=== PATIENT | female | born 1985 | race Caucasian/White ===

== ENCOUNTER 2017-12-02 16:50 | Emergency (ER) | payer OTHER ==
[2017-12-02 17:48] VITALS: BP 143/81
[2017-12-02] MEDS ORDERED: Tetan/Diph/Pertus SYR(Tdap)* 0.5 ML SYR(BOOSTRIX) use SYR IM ONE (17:54)
--- NOTE | 2017-12-02 19:16 | RAD ---
INDICATION: Right fifth finger injury. TECHNIQUE: 3 views of the right fifth finger were obtained. FINDINGS: The bones are normal alignment. No fracture is seen. Joint spaces appear maintained. IMPRESSION: NO EVIDENCE FOR FRACTURE.
--- NOTE | 2017-12-02 19:42 | UC ---
Hand/Wrist HPI - HPI Summary HPI Summary: 32 yo female was mucking out her fathers barn hit right hand on manure dramatic coach paddle superficial flap lac to right little finger - History Of Current Complaint Chief Complaint: UCLaceration Stated Complaint: RIGHT SMALL FINGER LACERATION Time Seen by Provider: 12/02/17 18:32 Hx Obtained From: Patient Hx Last Menstrual Period: has mirena Onset/Duration: Sudden Onset, Lasting Hours Severity Initially: Moderate Severity Currently: Moderate Pain Intensity: 7 Pain Scale Used: 0-10 Numeric Character Of Pain: Aching, Throbbing Aggravating Factor(s): Movement Alleviating Factor(s): Rest, Ice, Elevation, OTC Meds - Allergies/Home Medications Allergies/Adverse Reactions: Allergies Allergy/AdvReac Type Severity Reaction Status Date / Time No Known Allergies Allergy Verified 12/02/17 17:48 Home Medications: Home Medications Ibuprofen TAB* [Advil TAB*] 800 mg PO ONCE 12/02/17 [History Confirmed 12/02/17] Levonorgestrel (Iud) [Mirena IUD] 20 mcg IU DAILY 12/02/17 [History Confirmed ] PMH/Surg Hx/FS Hx/Imm Hx Previously Healthy: Yes - Surgical History Surgical History: Yes Surgery Procedure, Year, and Place: WISDOM TEETH. LEFT HAND 1 INCH PIECE OF WOOD REMOVED 2008 - Family History Known Family History: Positive: Hypertension - Social History Alcohol Use: Occasionally Substance Use Type: None Smoking Status (MU): Never Smoked Tobacco - Immunization History Most Recent Tetanus Shot: 04/2009 Review of Systems Constitutional: Negative Skin: Negative Eyes: Negative ENT: Negative Respiratory: Negative Cardiovascular: Negative Gastrointestinal: Negative Genitourinary: Negative Motor: Negative Neurovascular: Negative Musculoskeletal: Arthralgia Neurological: Negative Psychological: Negative Is Patient Immunocompromised?: No All Other Systems Reviewed And Are Negative: Yes Physical Exam Triage Information Reviewed: Yes Appearance: Well-Appearing, No Pain Distress, Well-Nourished Vital Signs: Initial Vital Signs Temp 98.2 F 12/02/17 17:42 Pulse 88 12/02/17 17:42 Resp 17 12/02/17 17:42 BP 143/81 12/02/17 17:42 Pulse Ox 98 12/02/17 17:42 Vital Signs Reviewed: Yes Eyes: Positive: Conjunctiva Clear ENT: Positive: Hearing grossly normal. Negative: Nasal congestion, Nasal drainage, Trismus, Muffled voice, Hoarse voice Neck: Positive: Supple Respiratory: Positive: Lungs clear, Normal breath sounds, No respiratory distress Cardiovascular: Positive: RRR, No Murmur Musculoskeletal: Positive: ROM Intact, No Edema Neurological: Positive: Alert Psychological Exam: Normal Skin Exam: Other - see image Diagnostics - Radiology No standard instances Xray Interpretation: No Acute Changes Radiology Interpretation Completed By: Radiologist Hand/Wrist Course/Dx - Course Course Of Treatment: advised of need to f/u here or with her PCP for any concerns of infection. Td was updated - Differential Dx/Diagnosis Provider Diagnoses: right little finger contusion/sprain. superficial flap laceration not sutured Discharge - Sign-Out/Discharge Documenting (check all that apply): Discharge - Discharge Plan Condition: Stable Disposition: HOME Prescriptions: Amoxicillin/Clavulanate TAB* [Augmentin TAB 875*] 875 mg PO BID #6 tab Patient Education Materials: Contusion in Adults (ED), Laceration Without Closure (ED) Referrals: Anirudh SILVA,Nicci Cardenas [Primary Care Provider] - 3 Days (if not improved) Additional Instructions: splint for comfort ibruprofen warm soapy soaks twice daily gently dry apply thin film of antibiotic ointmen this injury is at risk for infection recheck for increased pain/redness/discharge - Billing Disposition and Condition Condition: STABLE Disposition: HOME Images Hands: 1 - 1 cm superficial flap lac
== END 2017-12-02 19:49 | disposition home or self-care (01) ==
LOC: UCCORT 16:50
DX: S60.051A Contusion of right little finger without damage to nail, initial encounter (principal); S61.216A Laceration without foreign body of right little finger without damage to nail, initial encounter; Z23 Encounter for immunization; W22.8XXA Striking against or struck by other objects, initial encounter; Y92.9 Unspecified place or not applicable
CPT/HCPCS: 73140; 90471; 90715

== ENCOUNTER 2017-12-16 06:14 | Day surgery (SDC) | payer OTHER ==
--- NOTE | 2017-12-08 09:27 | HP ---
PREOPERATIVE HISTORY AND PHYSICAL: DATE OF ADMISSION/SURGERY: 12/16/17 DATE OF OFFICE VISIT/ENCOUNTER: 11/26/17 ATTENDING SURGEON: Ashleigh Scruggs MD* (dictated by RIGO Glynn). PROCEDURE: Right wrist carpal tunnel release. CHIEF COMPLAINT: Numbness and tingling, bilateral hands, right worse than left. HISTORY OF PRESENT ILLNESS: This is a 32-year-old female that reports she has had numbness and tingling in both of her hands including the thumb, index, and middle fingers primarily for over 10 years. She denies any injury, but reports that with all activities the symptoms are made worse. She also gets symptoms in the middle of the night that awaken her. 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 She has not found anything as of yet that is very helpful to alleviate her symptoms. She has wrist braces at night, but feels that they cause her fingers to swell, so they are not very comfortable. She has also tried physical therapy, but this has not been helpful either. She had a nerve conduction/EMG study, which did show bilateral carpal tunnel syndrome, right worse than left. She is interested in pursuing surgical intervention for this problem at this time and has consented to proceed with a right wrist carpal tunnel release. PAST MEDICAL HISTORY: Unremarkable. PAST SURGICAL HISTORY: 1. Left hand foreign body removal in 2008. 2. [place] teeth extraction. CURRENT MEDICATIONS: None. ALLERGIES: No known drug allergies. FAMILY MEDICAL HISTORY: Diabetes, breast cancer, dementia, and heart disease. 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 She denies tobacco use and recreational drug use. She does drink alcohol on rare occasion. REVIEW OF SYSTEMS: General: Negative for fevers, chills, or night sweats. No known anesthesia problems. HEENT: Negative for headache, lightheadedness, or syncopal episodes. Integumentary: Negative for abrasions, lesions, or open wounds. Cardiothoracic: Negative for hypertension, chest pain, palpitations, or edema. Pulmonary: Negative for shortness of breath with exertion, chronic cough, or COPD. GI: Negative for nausea, vomiting, diarrhea, constipation, or GERD. : Negative for nocturia, urinary frequency, urgency, history of UTIs, and kidney problems. Musculoskeletal: Positive for current complaint. Negative for chronic or intermittent back pain or history of fractures. Neurological: Negative for paresthesias, numbness, history of seizure, stroke, or epilepsy. Endocrine: Negative for diabetes or thyroid issues. Hematologic: Negative for easy bruising, anemia, excessive bleeding, or history of DVT. Infectious Disease: Negative for history of MRSA, hepatitis C, or HIV. PHYSICAL EXAMINATION GENERAL: Well-developed, well-nourished, 32-year-old female in no acute distress. VITAL SIGNS: Height 5 feet 2.5 inches, weight 223 pounds, pulse rate 67, and blood pressure 126/82. HEENT: Normocephalic and atraumatic. Pupils are equal, round, and reactive to light and accommodation. Extraocular movements are intact. Throat is clear. NECK: Supple. No palpable lymph nodes. PULMONARY: Lungs are clear to auscultation bilaterally. No wheezes, rales, or rhonchi. CARDIOVASCULAR: Regular rate and rhythm, S1 and S2. No murmurs, rubs, or gallops. No edema. ABDOMEN: Positive bowel sounds, soft, and nontender. NEUROLOGIC: Alert and oriented x3. Cranial nerves II through XII are intact. Sensation is intact to light touch. MUSCULOSKELETAL: On exam of bilateral upper extremities, there is no visible muscle wasting at the thenar eminences or intrinsic muscles. She has good strength in bilateral thumbs and also good strength with finger abduction. There is mild tenderness to palpation at the left elbow, none at the right. She has a positive Tinel's at the wrist bilaterally over the median nerve. Positive median compression test and positive Phalen's test bilaterally. Negative Tinel's test bilaterally at the elbows. She has good range of motion of her elbows and her wrists. Sensation is intact to light touch throughout each hand. She has just mild increase in her symptoms as she laterally flexes her neck both to the left and to the right. No increase in symptoms with rotation, flexion, or extension of the cervical spine. She has a negative Spurling's test. DIAGNOSTIC STUDIES: EMG/nerve conduction studies showed bilateral carpal tunnel syndrome, right worse than left. PLAN: The patient is scheduled to undergo a right wrist carpal tunnel release with Dr. Scruggs on 12/16/17. She will return to the office 10 days postop for followup and suture removal. A prescription for Ultracet was e-scribed to the patient's pharmacy for postoperative pain management. RIGO GLYNN [id number]/[facility] #: [id number] MTDFred
[~2017-12-16 06:14] MED LIST: Buffered Lidocaine 0.9% SYRIN* 5 ML/SYR SYRINGE INTRADERM ONE
[2017-12-16] MEDS ORDERED: Lidocaine 1% INJ* 10 MG/ML 30 ML SDV ONE (07:15)
[2017-12-16] MEDS ORDERED: fentaNYL* 50 MCG/ML 2 ML VIAL (100 MCG VIAL) ONE (07:19)
[2017-12-16] MEDS ORDERED: Midazolam* 1 MG/ML 2 ML VIAL (2 MG) ONE (07:19)
[2017-12-16] MEDS ORDERED: Propofol* 10 MG/ML 20 ML BTL IV PUSH ONE (07:19)
[2017-12-16] MEDS ORDERED: Ondansetron INJ* 2 MG/ML VIAL ONE (07:21)
[2017-12-16 08:27] VITALS: BP 118/64
[2017-12-16] MEDS ORDERED: Naloxone* 0.4 MG/ML 1 ML VIAL IV PRN (08:59)
--- NOTE | 2017-12-16 16:39 | OP ---
DATE OF OPERATION: 12/16/17 [facility] DATE OF : 87 SURGEON: Ashleigh Scruggs MD MEDICATION COORDINATOR: RIGO Glynn ANESTHESIA: Local MAC. PRE-OP DIAGNOSIS: Right carpal tunnel syndrome. POST-OP DIAGNOSIS: Right carpal tunnel syndrome. OPERATIVE PROCEDURE: Right carpal tunnel release. INDICATIONS: Astrid is a 32-year-old female with numbness and tingling in the median nerve distribution of her right hand. She presents for a right carpal tunnel release. ESTIMATED BLOOD LOSS: Zero. TOURNIQUET TIME: 5 minutes. DESCRIPTION OF PROCEDURE: The patient was brought to the operating room, was given a sedation anesthetic and a local infiltration of 10 cc of 1% plain lidocaine in the palm of her right hand. The skin of her right hand and forearm was prepped and draped in the usual sterile fashion. The hand and forearm were exsanguinated and the tourniquet elevated to 250 mmHg. A longitudinal incision was made in the palm in line with the ring finger. We dissected through the subcutaneous tissue down to the transverse carpal ligament. The ligament was divided sharply with a knife and then more proximally with the scissors. The nerve was dissected free from the surrounding tissue and there was an area of moderate compression at the mid portion of the ligament. The wound was irrigated and the skin edges were reapproximated with 4-0 nylon suture. The wound was dressed with Xeroform, 4x4, Webril, and an Franco wrap. The patient tolerated the procedure well and was brought to the recovery room in good condition. [id number]/[facility] #: [id number] [facility]
== END 2017-12-16 08:24 | disposition home or self-care (01) ==
LOC: OREAST 06:14
PROVIDERS: ATTEND Orthopaedic Surgery
DX: G56.01 Carpal tunnel syndrome, right upper limb (principal); Z68.39 Body mass index [BMI] 39.0-39.9, adult
CPT/HCPCS: 81025; J2250; J2405; J2704; J3010

== ENCOUNTER 2019-10-05 07:33 | Day surgery (SDC) | payer BC ==
--- NOTE | 2019-09-28 20:48 | HP ---
PREOPERATIVE HISTORY AND PHYSICAL: DATE OF ADMISSION/SURGERY: 10/05/19 [facility] DATE OF OFFICE VISIT/ENCOUNTER: 09/16/19 ATTENDING SURGEON: Ashleigh Tsang MD.* (DICTATED BY RIGO OLIVO) PROCEDURE: Left wrist carpal tunnel release. HISTORY OF PRESENT ILLNESS: This is a 34-year-old female who complains of numbness and tingling in her left hand, ongoing for over 10 years. She denies any injury but reports that with all activities the symptoms are made worse. She also gets symptoms in the middle of the night that awaken her. She has not found anything that is very helpful to alleviate her symptoms. She has tried wrist braces but that has not worked. She has also tried physical therapy. She had an EMG nerve conduction study which showed carpal tunnel syndrome on the left. She a couple of years ago underwent a right wrist carpal tunnel release and did quite well with that. She has now consented to proceed with a left wrist carpal tunnel release. PAST MEDICAL HISTORY: Unremarkable. PAST SURGICAL HISTORY: 1. Right carpal tunnel release. 2. Left hand foreign body removal. 3. [place] teeth extraction. CURRENT MEDICATIONS: None. ALLERGIES: No known drug allergies. FAMILY MEDICAL HISTORY: Diabetes, breast cancer, dementia, heart disease. 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 She denies tobacco use or recreational drug use. She drinks alcohol on rare occasion. REVIEW OF SYSTEMS: Negative for general, cephalic, cardiovascular, respiratory , GI, , other musculoskeletal, integumentary, endocrine, neurologic, and hematologic symptoms. Infectious disease is negative for MRSA, hepatitis C, and HIV. PHYSICAL EXAMINATION GENERAL: Well-developed, well-nourished 34-year-old female, in no acute distress. VITAL SIGNS: Height 5 feet 2-1/2 inches, weight 220 pounds. Pulse rate 71, blood pressure 118/78. HEENT: Normocephalic, atraumatic. Pupils are equal, round, reactive to light and accommodation. Extraocular movements are intact. Throat is clear. NECK: Supple. No palpable lymph nodes. PULMONARY: Lungs are clear to auscultation bilaterally. No wheezes, rales, or rhonchi. CARDIOVASCULAR: Regular rate and rhythm. S1, S2. No murmurs, rubs, or gallops. No edema. ABDOMEN: Positive bowel sounds. Soft, nontender. NEUROLOGICAL: Alert and oriented x3. Cranial nerves II through XII are intact. MUSCULOSKELETAL: On exam of the left wrist and hand, there is no visible muscle wasting at the thenar eminence. She has good strength with some abduction. Positive Tinel sign at the wrist over the median nerve and positive median nerve compression test. She has good range of motion in her wrist and hand, and sensation is intact to light touch throughout the hand. DIAGNOSTIC STUDIES: EMG/nerve conduction study shows left carpal tunnel syndrome. PLAN: The patient is scheduled to undergo a left wrist carpal tunnel release with Dr. Tsang on 10/05/19. She will return to the office 10 days postop for followup and suture removal. A prescription for tramadol was e-scribed to the patient's pharmacy for postoperative pain management. RIGO OLIVO [id number]/[facility] #: [id number] NATHEN
[~2019-10-05 07:33] MED LIST changes: +Acetaminophen TAB* 325 MG ONE; +Acetaminophen TAB* 325 MG PO ONE; -Buffered Lidocaine 0.9% SYRIN* 5 ML/SYR SYRINGE INTRADERM ONE; +Buffered Lidocaine 1% SYRIN* 1 ML/SYRINGE INTRADERM ONE; +Lactated Ringers 1000 ML Bag* 1,000 ML IV SCH
[2019-10-05] MEDS ORDERED: Midazolam* 1 MG/ML 5 ML VIAL (5 MG) ONE (08:48)
[2019-10-05] MEDS ORDERED: Lidocaine 1% INJ* 10 MG/ML 30 ML SDV ONE (09:58)
[2019-10-05] MEDS ORDERED: Propofol* 10 MG/ML 20 ML BTL ONE (10:07)
[2019-10-05] MEDS ORDERED: Ondansetron INJ* 2 MG/ML VIAL ONE (10:07)
[2019-10-05] MEDS ORDERED: Ketorolac INJ* 30 MG/ML 1 ML VIAL ONE (10:07)
[2019-10-05] MEDS ORDERED: DiMENhydriNATE IV* 50 MG/ML VIAL ONE (10:07)
[2019-10-05] MEDS ORDERED: DiMENhydriNATE IV* 50 MG/ML VIAL IV PUSH PRN (10:20)
[2019-10-05 11:12] VITALS: BP 127/66
--- NOTE | 2019-10-05 22:32 | OP ---
DATE OF OPERATION: 10/05/19 [facility] DATE OF : [birth year] SURGEON: Ashleigh Tsang MD HOUSE PAINTING INSTRUCTOR: RIGO Glynn ANESTHESIA: Local MAC. PRE-OP DIAGNOSIS: Left carpal tunnel syndrome. POST-OP DIAGNOSIS: Left carpal tunnel syndrome. OPERATIVE PROCEDURE: Left carpal tunnel release. ESTIMATED BLOOD LOSS: Zero. TOURNIQUET TIME: About 10 minutes. INDICATIONS FOR PROCEDURE: Astrid is a 34-year-old female who has numbness and tingling in the median nerve distribution of her left hand. She presents for left carpal tunnel release. DESCRIPTION OF PROCEDURE: The patient was brought to the operating room, was given a sedation anesthetic and a local infiltration of 10 cc of 1% plain lidocaine in the palm of her left hand. The skin of her left hand and forearm was prepped and draped in the usual sterile fashion. The hand and forearm were exsanguinated and the tourniquet elevated to 250 mmHg. A longitudinal incision was made in the palm in line with the ring finger and we dissected through the subcutaneous tissue down to the transverse carpal ligament. The ligament was divided sharply with a knife and then more proximally with the scissors. The nerve was dissected free from the surrounding tissue and there was an area of moderate compression at the mid portion of the ligament. The wound was irrigated and the skin edges reapproximated with 4- 0 nylon suture. The wound was dressed with Xeroform, 4x4, Webril, and an Franco wrap. The patient tolerated the procedure well and was brought to the recovery room in good condition. [id number]/[facility] #: [id number] NATHEN
== END 2019-10-05 11:20 | disposition home or self-care (01) ==
LOC: OREAST 07:33
PROVIDERS: ATTEND Orthopaedic Surgery
DX: G56.02 Carpal tunnel syndrome, left upper limb (principal)
CPT/HCPCS: 81025; A9270-GY; J1240; J1885; J2250; J2405; J2704